=== PATIENT | male | born 1995 | race Caucasian/White ===

== ENCOUNTER 2022-03-02 20:14 | Emergency (ER) | payer OTHER ==
[~2022-03-02] VITALS: Ht 172.7 cm; Wt 65.8 kg
== END 2022-03-02 21:30 | disposition home or self-care (01) ==
LOC: ED 20:14
DX: S43.005A Unspecified dislocation of left shoulder joint, initial encounter (principal); X58.XXXA Exposure to other specified factors, initial encounter
CPT/HCPCS: 23650; 73030; 99283-25; A9270